=== PATIENT | male | born 1945 | race Caucasian/White ===

== ENCOUNTER 2016-11-10 16:41 | Emergency (ER) | payer OTHER, BC ==
--- NOTE | 2016-11-10 16:40 | EDM.PDOC ---
ED HPI LOWER BACK PAIN/INJURY - General Chief Complaint: Back Pain or Injury Stated Complaint: FELL, IN BY JONNY AMB Time Seen by Provider: 11/10/16 16:30 Source of Information: Reports: Patient History Limitations: Reports: No limitations - History of Present Illness INITIAL COMMENTS - FREE TEXT/NARRATIVE: This 71 yo male patient was brought to the ED by [facility] due to left lower back pain and muscle spasms. 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 The patient has been experiencing muscle spasms in the left lower back since the time of injury. The patient reports he has not been able to walk due to the muscle spasms. The patient had to call the ambulance due to the fact that he could not ambulate with muscle spasm. Symptom Onset Date: 11/10/16 Timing/Duration: Reports: Constant Location: Reports: lower, paraspinal Quality: Reports: Ache, Sharp Severity: moderate Place of Occurrence: work Improves with: Reports: Rest Worsens with: Reports: Movement Context: Reports: fall Associated Symptoms: Reports: Denies symptoms - Related Data Allergies/ADRs: Allergies Allergy/AdvReac Type Severity Reaction Status Date / Time No Known Allergies Allergy Verified 11/10/16 17:07 Home Meds: Home Meds Aspirin [Halfprin] 81 mg PO DAILY 11/10/16 [History] Atenolol [Tenormin] 100 mg PO DAILY 11/10/16 [History] Hydrochlorothiazide 25 mg PO DAILY 11/10/16 [History] Simvastatin [Simvastatin] 20 mg PO BEDTIME 11/10/16 [History] ED ROS GENERAL - Review of Systems Review Of Systems: ROS reveals no pertinent complaints other than HPI. ED EXAM,LOWER BACK PAIN/INJURY - Physical Exam Exam: See Below Exam Limited By: No limitations General Appearance: alert, WD/WN, moderate distress Eye Exam: bilateral eye: EOMI, normal inspection, PERRL Ears: normal external exam, normal canal, hearing grossly normal, normal TMs Nose: normal inspection, normal mucosa, no blood Throat/Mouth: Normal inspection, Normal lips, Normal teeth, Normal gums, Normal oropharynx, Normal voice, No airway compromise Head: atraumatic, normocephalic Neck: normal inspection, supple, non-tender, full range of motion Respiratory/Chest: no respiratory distress, lungs clear, normal breath sounds, no accessory muscle use, chest non-tender Cardiovascular: normal peripheral pulses, regular rate, rhythm, no edema, no gallop, no JVD, no murmur, no rub GI/Abdominal: normal bowel sounds, soft, non tender, no organomegaly, no distention, no abnormal bruit, no mass (Male) Exam: Deferred Rectal (Males) Exam: Deferred Back Exam: muscle spasm (left lower back), paraspinal tenderness Extremities: normal inspection, normal range of motion, non-tender, no pedal edema, normal capillary refill Neurological: alert, normal mood/affect, normal reflexes, oriented x 3 Psychiatric: normal affect, normal mood Skin Exam: Warm, Dry, Intact, Normal color, No rash Lymphatic: no adenopathy Course - Vital Signs Last Recorded V/S: Last Vital Signs Temp 36.9 C 11/10/16 16:44 Pulse 67 11/10/16 16:44 Resp BP 134/73 11/10/16 16:44 Pulse Ox - Orders/Labs/Meds Orders: Active Orders 24 hr Category Date Time Status Orphenadrine [Norflex] Med 11/10/16 16:45 Active 60 mg IM Q12H Medication Orders Orphenadrine Citrate (Norflex) 60 mg IM Q12H JAIME Last Admin: 11/10/16 16:57 Dose: 60 mg Meds: Medications Generic Name Dose Route Start Last Admin Trade Name Freq PRN Reason Stop Dose Admin Orphenadrine Citrate 60 mg 11/10/16 16:45 11/10/16 16:57 Norflex IM 60 mg Q12H JAIME Administration Discontinued Medications Generic Name Dose Route Start Last Admin Trade Name Freq PRN Reason Stop Dose Admin Ketorolac Tromethamine 60 mg 11/10/16 16:34 11/10/16 16:54 Toradol IM 11/10/16 16:35 60 mg ONETIME ONE Administration Departure - Departure Time of Disposition: 18:33 Disposition: Home, Self-Care 01 Condition: fair Clinical Impression: Low back strain Qualifiers: Encounter type: initial encounter Qualified Code(s): S39.012A - Strain of muscle, fascia and tendon of lower back, initial encounter Instructions: Muscle Strain, [id number], Back Pain, Adult, [id number] Forms: ED Department Discharge Care Plan Goals: The patient was advised of the examination results during the visit. The patient was given an injection of Toradol and Norflex while in the ED. The patient was discharged with scripts for 1) Toradol (10 mg) #20 to take 1 by mouth every 6 hours, 2) Flexeril (10 mg) #20 to take 1 by mouth at bedtime and 3 ) Ismay (5/325) #6 to take 1 by mouth every 6 hours as needed for pain. If the patient has any additional symptoms or concerns, the patient should follow-up with his primary care facility or return to the emergency department. - My Orders Last 24 Hours: My Active Orders 11/10/16 16:45 Orphenadrine [Norflex] 60 mg IM Q12H - Assessment/Plan Last 24 Hours: My Active Orders 11/10/16 16:45 Orphenadrine [Norflex] 60 mg IM Q12H
[~2016-11-10 16:41] MED LIST: Ketorolac 30 MG/ML SDV IM ONE
[2016-11-10 16:45] VITALS: BP 134/73
== END 2016-11-10 18:50 | disposition home or self-care (01) ==
LOC: DL.ED 16:41
DX: S39.012A Strain of muscle, fascia and tendon of lower back, initial encounter (principal); Z79.82 Long term (current) use of aspirin; W19.XXXA Unspecified fall, initial encounter; Y93.89 Activity, other specified; Y92.89 Other specified places as the place of occurrence of the external cause
CPT/HCPCS: 96372; 99283; J1885; J2360

== ENCOUNTER 2019-07-13 19:39 | Observation (INO) | payer MEDICARE, OTHER ==
[2019-07-13 20:14] LABS: ANION GAP 21.2
[2019-07-13] MEDS ORDERED: Sodium Chloride 0.9% 1,000 ML IV ONE (20:17)
[2019-07-13] MEDS ORDERED: Potassium Chloride 10 MEQ Tab.ER PO ONE (20:18)
--- NOTE | 2019-07-13 20:25 | EDM.PDOC ---
ED HPI GENERAL MEDICAL PROBLEM - General Chief Complaint: Chest Pain Stated Complaint: AMBULANCE Time Seen by Provider: 07/13/19 20:21 Source of Information: Reports: Patient History Limitations: Reports: No Limitations - History of Present Illness INITIAL COMMENTS - FREE TEXT/NARRATIVE: states been having diarrhoea all day and left upper chest been having "twinges" of on-off sharp pain, gone now. c/o mouth being dry. states not eaten anything all day but able to take liquids denies N/V. came in due to his BP high and heart racing. 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 Left Upper Chest Pain Score (Numeric/FACES): 3 - Related Data Allergies Allergy/AdvReac Type Severity Reaction Status Date / Time No Known Allergies Allergy Verified 11/10/16 17:07 Home Meds: Home Meds Aspirin [Halfprin] 81 mg PO DAILY 11/10/16 [History] Hydrochlorothiazide 25 mg PO DAILY 11/10/16 [History] Simvastatin 20 mg PO BEDTIME 11/10/16 [History] atenoloL [Tenormin] 100 mg PO DAILY 11/10/16 [History] Past Medical History HEENT History: Reports: Hard of Hearing, Impaired Vision Cardiovascular History: Reports: High Cholesterol, Hypertension - Past Surgical History Musculoskeletal Surgical History: Reports: Other (See Below) Social & Family History - Family History Family Medical History: Noncontributory - Tobacco Use Smoking Status *Q: Unknown Ever Smoked Second Hand Smoke Exposure: No - Caffeine Use Caffeine Use: Reports: Coffee - Recreational Drug Use Recreational Drug Use: No ED ROS GENERAL - Review of Systems Review Of Systems: Comprehensive ROS is negative, except as noted in HPI. ED EXAM, GENERAL - Physical Exam Exam: See Below Exam Limited By: No Limitations General Appearance: Alert, WD/WN, No Apparent Distress, Other (pleasant ) Ears: Hearing Grossly Normal Throat/Mouth: Normal Voice, No Airway Compromise Head: Atraumatic Neck: Non-Tender, Full Range of Motion Respiratory/Chest: No Respiratory Distress Cardiovascular: Regular Rate, Rhythm GI/Abdominal: Soft, Non-Tender Neurological: Alert, Oriented, Normal Cognition, Normal Gait, No Motor/Sensory Deficits Psychiatric: Normal Affect, Normal Mood Skin Exam: Warm, Dry, Normal Color Lymphatic: No Adenopathy Course - Vital Signs Last Recorded V/S: Last Vital Signs Temp 37.6 C 07/13/19 19:47 Pulse 127 H 12/26/19 19:47 Resp 18 07/13/19 19:47 BP 154/81 H 07/13/19 19:47 Pulse Ox 91 L 07/13/19 19:47 - Orders/Labs/Meds Orders: Active Orders 24 hr Category Date Time Status Admission Diagnosis [ADT] Stat ADT 07/13/19 22:13 Ordered Admission Status [Patient Status] [ADT] Routine ADT 07/13/19 22:13 Ordered EKG Documentation Completion [RC] STAT Care 07/13/19 19:47 Active Labs: Laboratory Tests 07/13/19 07/13/19 07/13/19 Range/Units 19:45 19:45 19:45 WBC 11.4 H (5.0-10.0) 10^3/uL RBC 5.58 (4.6-6.2) 10^6/uL Hgb 17.7 (14.0-18.0) g/dL Hct 51.2 (40.0-54.0) % MCV 91.8 (80-100) fL MCH 31.7 (27.0-34.0) pg MCHC 34.6 (33.0-35.0) g/dL Plt Count 226 (150-450) 10^3/uL Neut % (Auto) 81.6 H (42.2-75.2) % Lymph % (Auto) 13.3 L (20.5-50.1) % [place] % (Auto) 4.9 (2-8) % Eos % (Auto) 0.1 L (1.0-3.0) % Baso % (Auto) 0.1 (0.0-1.0) % D-Dimer, Quantitative 539 H (0-400) ng/mL Sodium 140 (135-145) mmol/L Potassium 3.2 L (3.6-5.0) mmol/L Chloride 102 (101-111) mmol/L Carbon Dioxide 20.0 L (21.0-31.0) mmol/L Anion Gap 21.2 BUN 21 H (7-18) mg/dL Creatinine 1.4 H (0.6-1.3) mg/dL Est Cr Clr Drug Dosing 46.14 mL/min Estimated GFR (MDRD) 50 BUN/Creatinine Ratio 15.00 Glucose 225 H (74-105) mg/dL Calcium 8.6 (8.4-10.2) mg/dl Total Bilirubin 1.0 (0.2-1.0) mg/dL AST 38 (10-42) IU/L ALT 38 (10-60) IU/L Alkaline Phosphatase 51 (42-121) IU/L Troponin I 0.03 H* (0.00-0.02) ng/ml B-Natriuretic Peptide 15 (0-100) pg/ml Total Protein 7.5 (6.7-8.2) g/dl Albumin 4.4 (3.2-5.5) g/dl Globulin 3.1 Albumin/Globulin Ratio 1.42 Ethyl Alcohol mg/dL 07/13/19 Range/Units 19:45 WBC (5.0-10.0) 10^3/uL RBC (4.6-6.2) 10^6/uL Hgb (14.0-18.0) g/dL Hct (40.0-54.0) % MCV (80-100) fL MCH (27.0-34.0) pg MCHC (33.0-35.0) g/dL Plt Count (150-450) 10^3/uL Neut % (Auto) (42.2-75.2) % Lymph % (Auto) (20.5-50.1) % [place] % (Auto) (2-8) % Eos % (Auto) (1.0-3.0) % Baso % (Auto) (0.0-1.0) % D-Dimer, Quantitative (0-400) ng/mL Sodium (135-145) mmol/L Potassium (3.6-5.0) mmol/L Chloride (101-111) mmol/L Carbon Dioxide (21.0-31.0) mmol/L Anion Gap BUN (7-18) mg/dL Creatinine (0.6-1.3) mg/dL Est Cr Clr Drug Dosing mL/min Estimated GFR (MDRD) BUN/Creatinine Ratio Glucose (74-105) mg/dL Calcium (8.4-10.2) mg/dl Total Bilirubin (0.2-1.0) mg/dL AST (10-42) IU/L ALT (10-60) IU/L Alkaline Phosphatase (42-121) IU/L Troponin I (0.00-0.02) ng/ml B-Natriuretic Peptide (0-100) pg/ml Total Protein (6.7-8.2) g/dl Albumin (3.2-5.5) g/dl Globulin Albumin/Globulin Ratio Ethyl Alcohol < 5 mg/dL Meds: Medications Discontinued Medications Generic Name Dose Route Start Last Admin Trade Name Aaronq PRN Reason Stop Dose Admin Sodium Chloride 1,000 mls @ 999 mls/hr 07/13/19 20:17 07/13/19 20:30 Normal Saline IV 07/13/19 21:17 999 mls/hr .BOLUS ONE Administration Iopamidol 100 ml 07/13/19 20:31 07/13/19 20:39 Isovue-370 (76%) IVPUSH 07/13/19 20:32 100 ml ONETIME ONE Administration Potassium Chloride 40 meq 07/13/19 20:18 07/13/19 20:30 Klor-Con 10 PO 07/13/19 20:19 40 meq ONETIME ONE Administration Departure - Departure Time of Disposition: 22:15 Disposition: Refer to Observation Condition: Good Clinical Impression: Hypokalemia, Elevated troponin, Elevated d-dimer, Dehydration syndrome Chest pain Qualifiers: Chest pain type: unspecified Qualified Code(s): R07.9 - Chest pain, unspecified Diarrhea Qualifiers: Diarrhea type: unspecified type Qualified Code(s): R19.7 - Diarrhea, unspecified Forms: ED Department Discharge Sepsis Event Note - Evaluation Sepsis Screening Result: No Definite Risk - Focused Exam Vital Signs: Vital Signs Temp Pulse Resp BP Pulse Ox 07/13/19 19:47 37.6 C 127 H 18 154/81 H 91 L Date Exam was Performed: 07/13/19 Time Exam was Performed: 22:15 - My Orders Last 24 Hours: My Active Orders 07/13/19 19:47 EKG Documentation Completion [RC] STAT 07/13/19 22:13 Admission Diagnosis [ADT] Stat Admission Status [Patient Status] [ADT] Routine - Assessment/Plan Last 24 Hours: My Active Orders 07/13/19 19:47 EKG Documentation Completion [RC] STAT 07/13/19 22:13 Admission Diagnosis [ADT] Stat Admission Status [Patient Status] [ADT] Routine
[2019-07-13] MEDS ORDERED: Iopamidol 755 Mg/ML 100 ML Bottle IVPUSH ONE (20:31)
--- NOTE | 2019-07-13 22:51 | PCM.HP ---
H&P History of Present Illness - General Date of Service: 07/13/19 Admit Problem/Dx: Admission Diagnosis/Problem Admission Diagnosis/Problem Elevated troponin level and Hypokalemia Source of Information: Patient, EMS Notes Reviewed, Old Records History Limitations: Reports: No Limitations - History of Present Illness Initial Comments - Free Text/Narative: This is a 73 y/o M with no Past medical history of Hypertension, Dyslipidemia, Edema of extremities, CKD stage III came to ED with feeling of racing heart and and diarrhea X 4 , watery and left upper chest been having on-off p pain, gone now while I saw him c/o mouth being dry and had not had any food today, no one at home had similar problem, all eat the same meal, His son has flu like symptom , he denied, fever, chill, dysuria He had CT chest with contrast and showed no PE but likely Gastroenteritis. EKG Sinus tachycardia, His Trop was at 0.03 ( Ref 0.02) , admitted for observation and monitoring Troponin. Onset of Symptoms: Reports: Today, Gradual Quality: Reports: Dull Left Upper Chest Pain Score (Numeric/FACES): 3 - Related Data Allergies/Adverse Reactions: Allergies Allergy/AdvReac Type Severity Reaction Status Date / Time No Known Allergies Allergy Verified 11/10/16 17:07 Home Medications: Home Meds Aspirin [Halfprin] 81 mg PO DAILY 11/10/16 [History] Hydrochlorothiazide 12.5 mg PO DAILY 11/10/16 [History] Simvastatin 20 mg PO BEDTIME 11/10/16 [History] atenoloL [Tenormin] 100 mg PO DAILY 11/10/16 [History] Tamsulosin [Flomax] 0.4 mg PO BEDTIME 07/13/19 [History] Past Medical History HEENT History: Reports: Hard of Hearing, Impaired Vision Cardiovascular History: Reports: High Cholesterol, Hypertension - Past Surgical History Musculoskeletal Surgical History: Reports: Other (See Below) Social & Family History - Family History Family Medical History: Noncontributory - Tobacco Use Smoking Status *Q: Unknown Ever Smoked Second Hand Smoke Exposure: No - Caffeine Use Caffeine Use: Reports: Coffee - Recreational Drug Use Recreational Drug Use: No H&P Review of Systems - Review of Systems: Review Of Systems: See Below General: Reports: Decreased Appetite. Denies: Fever, Chills, Weakness, Fatigue HEENT: Denies: Dysphasia, Hearing Changes, Sinus Congestion, Vertigo, Visual Changes Pulmonary: Denies: Shortness of Breath, Wheezing, Pleuritic Chest Pain, Cough, Sputum Cardiovascular: Reports: Other (Sinus tachycardia). Denies: Chest Pain, Lightheadedness Gastrointestinal: Reports: Diarrhea. Denies: Abdominal Pain, Bloody Stool, Difficulty Swallowing, Nausea, Vomiting Genitourinary: Denies: Dysuria, Burning, Flank Pain Musculoskeletal: Denies: Neck Pain, Shoulder Pain, Leg Pain, Muscle Stiffness Skin: Denies: Cyanosis, Dryness, Bruising, Rash Psychiatric: Denies: Confusion, Anxiety, Agitation Neurological: Denies: Confusion, Numbness, Paresthesia, Tremors Hematologic/Lymphatic: Reports: No Symptoms Immunologic: Reports: No Symptoms Exam - Exam Exam: See Below - Vital Signs Vital Signs: Last Vital Signs Temp 37.2 C 07/13/19 22:30 Pulse 120 H 07/13/19 22:30 Resp 18 07/13/19 22:30 BP 128/77 07/13/19 22:30 Pulse Ox 93 L 07/13/19 22:30 Weight: 91.535 kg - Exam Quality Assessment: DVT Prophylaxis. No: Supplemental Oxygen, Urinary Catheter General: Alert, Oriented, Cooperative HEENT: Conjunctiva Clear, EOMI, Mucosa Moist & [place], Pupils Equal Neck: No: Lymphadenopathy, Carotid Bruit, JVD, Thyromegaly Lungs: Clear to Auscultation, Normal Respiratory Effort. No: Crackles, Wheezing Cardiovascular: Regular Rate, Regular Rhythm, Systolic Murmur GI/Abdominal Exam: Normal Bowel Sounds, Soft, Non-Tender. No: Guarding, Rebound (Male) Exam: Deferred Rectal (Males) Exam: Deferred Back Exam: Normal Inspection, Full Range of Motion Extremities: Normal Inspection, No Pedal Edema Skin: Warm, Dry, Intact Neurological: Cranial Nerves Intact, Reflexes Equal Bilateral Neuro Extensive - Mental Status: Alert, Oriented x3, Normal Mood/Affect, Normal Cognition, Memory Intact Neuro Extensive - Motor, Sensory, Reflexes: CN II-XII Intact, Normal Gait, Normal Reflexes Psychiatric: Alert, Normal Affect, Normal Mood - Patient Data Lab Results Last 24 hrs: Laboratory Results - last 24 hr 07/13/19 07/13/19 07/13/19 Range/Units 19:45 19:45 19:45 WBC 11.4 H (5.0-10.0) 10^3/uL RBC 5.58 (4.6-6.2) 10^6/uL Hgb 17.7 (14.0-18.0) g/dL Hct 51.2 (40.0-54.0) % MCV 91.8 (80-100) fL MCH 31.7 (27.0-34.0) pg MCHC 34.6 (33.0-35.0) g/dL Plt Count 226 (150-450) 10^3/uL Neut % (Auto) 81.6 H (42.2-75.2) % Lymph % (Auto) 13.3 L (20.5-50.1) % [place] % (Auto) 4.9 (2-8) % Eos % (Auto) 0.1 L (1.0-3.0) % Baso % (Auto) 0.1 (0.0-1.0) % D-Dimer, Quantitative 539 H (0-400) ng/mL Sodium 140 (135-145) mmol/L Potassium 3.2 L (3.6-5.0) mmol/L Chloride 102 (101-111) mmol/L Carbon Dioxide 20.0 L (21.0-31.0) mmol/L Anion Gap 21.2 BUN 21 H (7-18) mg/dL Creatinine 1.4 H (0.6-1.3) mg/dL Est Cr Clr Drug Dosing 46.14 mL/min Estimated GFR (MDRD) 50 BUN/Creatinine Ratio 15.00 Glucose 225 H (74-105) mg/dL Calcium 8.6 (8.4-10.2) mg/dl Total Bilirubin 1.0 (0.2-1.0) mg/dL AST 38 (10-42) IU/L ALT 38 (10-60) IU/L Alkaline Phosphatase 51 (42-121) IU/L Troponin I 0.03 H* (0.00-0.02) ng/ml B-Natriuretic Peptide 15 (0-100) pg/ml Total Protein 7.5 (6.7-8.2) g/dl Albumin 4.4 (3.2-5.5) g/dl Globulin 3.1 Albumin/Globulin Ratio 1.42 Ethyl Alcohol mg/dL 07/13/19 Range/Units 19:45 WBC (5.0-10.0) 10^3/uL RBC (4.6-6.2) 10^6/uL Hgb (14.0-18.0) g/dL Hct (40.0-54.0) % MCV (80-100) fL MCH (27.0-34.0) pg MCHC (33.0-35.0) g/dL Plt Count (150-450) 10^3/uL Neut % (Auto) (42.2-75.2) % Lymph % (Auto) (20.5-50.1) % [place] % (Auto) (2-8) % Eos % (Auto) (1.0-3.0) % Baso % (Auto) (0.0-1.0) % D-Dimer, Quantitative (0-400) ng/mL Sodium (135-145) mmol/L Potassium (3.6-5.0) mmol/L Chloride (101-111) mmol/L Carbon Dioxide (21.0-31.0) mmol/L Anion Gap BUN (7-18) mg/dL Creatinine (0.6-1.3) mg/dL Est Cr Clr Drug Dosing mL/min Estimated GFR (MDRD) BUN/Creatinine Ratio Glucose (74-105) mg/dL Calcium (8.4-10.2) mg/dl Total Bilirubin (0.2-1.0) mg/dL AST (10-42) IU/L ALT (10-60) IU/L Alkaline Phosphatase (42-121) IU/L Troponin I (0.00-0.02) ng/ml B-Natriuretic Peptide (0-100) pg/ml Total Protein (6.7-8.2) g/dl Albumin (3.2-5.5) g/dl Globulin Albumin/Globulin Ratio Ethyl Alcohol < 5 mg/dL Result Diagrams: 07/13/19 19:45 07/13/19 19:45 - Problem List (1) Sinus tachycardia SNOMED Code(s): 27630350 ICD Code: R00.0 - TACHYCARDIA, UNSPECIFIED Status: Acute Current Visit: Yes (2) Diarrhea SNOMED Code(s): 09332623 ICD Code: R19.7 - DIARRHEA, UNSPECIFIED Status: Acute Current Visit: No Qualifiers: Diarrhea type: unspecified type (3) Elevated troponin SNOMED Code(s): 615387969, 129731998, 460013775 ICD Code: R79.89 - OTHER SPECIFIED ABNORMAL FINDINGS OF BLOOD CHEMISTRY Status: Acute Current Visit: No (4) Hypokalemia SNOMED Code(s): 79304663 ICD Code: E87.6 - HYPOKALEMIA Status: Acute Current Visit: No Problem List Initiated/Reviewed/Updated: Yes Orders Last 24hrs: Active Orders 24 hr Category Date Time Status Admission Diagnosis [ADT] Stat ADT 07/13/19 22:13 Ordered Admission Status [Patient Status] [ADT] Routine ADT 07/13/19 22:13 Active Assessment/Plan Comment:: This is a 73 y/O male admitted with elevated Troponin and Sinus tachycardia Impression and Plan: 1. Elevated Troponin: His troponin is slightly elevated , probably from Demand ischemia from Intravascular volume depletion/Dehydration secondary to Diarrhea -Will continue NS at 100 ml/hr -Will check Trop X 3 more sates q 4 hrs 2. Hypertension: BP is acceptable but he is tachycardic and it could be secondary to Dehydration -Will continue IVF -Will start cardizem at 60 mg PO q8hrs with a dose now -Will hold propranolol 3. Hypokalemia: This Likely secondary to Diarrhea -Will replace with potassium chloride 4. Dyslipidemia: Continue Simvastatin 5. Edema of extremities: Will hold HCTZ ( was at 25 mg daily) DVT prophylaxis: start Levonex Code Status: Discussed with pt code status and he is FULL CODE
[2019-07-13] MEDS ORDERED: Acetaminophen 325 MG Tab PO PRN (23:03)
[2019-07-13] MEDS ORDERED: Docusate Sodium 100 MG Cap PO PRN (23:03)
[2019-07-13] MEDS ORDERED: Diltiazem IR 30 MG Tab PO SCH (23:25)
[2019-07-13] MEDS ORDERED: Sodium Chloride 0.9% 1,000 ML IV SCH (23:30)
[2019-07-13] MEDS ORDERED: Tamsulosin 0.4 MG Cap.ER PO ONE (23:58)
[2019-07-13] MEDS ORDERED: Simvastatin 10 MG Tab PO ONE (23:59)
[2019-07-14] MEDS ORDERED: SIMVASTATIN 20 MG PO SCH (00:15)
[2019-07-14] MEDS ORDERED: Tamsulosin 0.4 MG Cap.ER**OWN MED PO SCH (00:15)
[2019-07-14] MEDS: Sodium Chloride 0.9% 10 ML Syringe FLUSH PRN ×2 (00:22→01:55)
[2019-07-14] MEDS ORDERED: Heparin Sodium/0.45% NaCl 25,000 UNITS/500 ML BAG IV SCH (01:45)
[2019-07-14] MEDS ORDERED: Heparin Sodium 5,000 Units/ML Vial IV ONE (01:45)
--- NOTE | 2019-07-14 02:02 | PCM.DCSUM1 ---
Discharge Summary - Hospital Course Free Text/Narrative:: This is a 73 y/o M with no Past medical history of Hypertension, Dyslipidemia, Edema of extremities, CKD stage III came to ED with feeling of racing heart and and diarrhea X 4 , watery and left upper chest been having on-off p pain, gone now while I saw him c/o mouth being dry and had not had any food today, no one at home had similar problem, all eat the same meal, His son has flu like symptom , he denied, fever, chill, dysuria He had CT chest with contrast on 07/13/19 and showed no PE but likely Gastroenteritis. EKG Sinus tachycardia, His Trop was at 0.03 ( Ref 0.02) , admitted for observation and monitoring Troponin. His troponin in 4 hrs increased from 0.03 to 0.2 and will start him on Heparin and transfer to [facility] for Cardiology Evaluation. Dr. Rojas have acceptable the transfer of the pt. - Discharge Data Discharge Date: 07/14/19 Discharge Disposition: DC/Tfer to Acute Hospital 02 Condition: Stable - Referral to Home Health Primary Care Physician: PCP Unobtainable - Discharge Diagnosis/Problem(s) (1) Sinus tachycardia SNOMED Code(s): 31807626 ICD Code: R00.0 - TACHYCARDIA, UNSPECIFIED Status: Acute Current Visit: Yes (2) Diarrhea SNOMED Code(s): 81060829 ICD Code: R19.7 - DIARRHEA, UNSPECIFIED Status: Acute Current Visit: No Qualifiers: Diarrhea type: unspecified type Qualified Code(s): R19.7 - Diarrhea, unspecified (3) Elevated troponin SNOMED Code(s): 033089935, 670153557, 902200166 ICD Code: R79.89 - OTHER SPECIFIED ABNORMAL FINDINGS OF BLOOD CHEMISTRY Status: Acute Current Visit: No (4) Hypokalemia SNOMED Code(s): 83567995 ICD Code: E87.6 - HYPOKALEMIA Status: Acute Current Visit: No - Patient Instructions Diet: Heart Healthy Diet Activity: As Tolerated Notify Provider of: Fever, Increased Pain, Nausea and/or Vomiting - Discharge Plan Home Medications: Home Meds Aspirin [Halfprin] 81 mg PO DAILY 11/10/16 [History] Hydrochlorothiazide 12.5 mg PO DAILY 11/10/16 [History] Simvastatin 20 mg PO BEDTIME 11/10/16 [History] atenoloL [Tenormin] 100 mg PO DAILY 11/10/16 [History] Tamsulosin [Flomax] 0.4 mg PO BEDTIME 07/13/19 [History] Forms: ED Department Discharge Referrals: PCP,Unobtain [Primary Care Provider] - - Discharge Summary/Plan Comment DC Time >30 min.: Yes Discharge Summary/Plan Comment: This is a 73 y/O male admitted with elevated Troponin and Sinus tachycardia Impression and Plan: 1. Elevated Troponin: His troponin is slightly elevated , probably from Demand ischemia from Intravascular volume depletion/Dehydration secondary to Diarrhea -Will continue NS at 100 ml/hr -Will check Trop X 2 more sates q 4 hrs -Recheck Trop increased from 0.03 to 2 -Will start Heparin drip and transfer pt to [facility] for further care and evaluation by Cardiology 2. Hypertension: BP is acceptable but he is tachycardic and it could be secondary to Dehydration -Will continue IVF -Will continue cardizem at 60 mg PO q8hrs with a dose now -Will hold propranolol 3. Hypokalemia: This Likely secondary to Diarrhea -He has receive potassium chloride 40 meq PO x 1 dose 4. Dyslipidemia: Continue Simvastatin 5. Edema of extremities: Will hold HCTZ ( was at 25 mg daily) DVT prophylaxis: start Levonex Code Status: Discussed with pt code status and he is FULL CODE - General Info Date of Service: 07/14/19 Admission Dx/Problem (Free Text: Admission Diagnosis/Problem Admission Diagnosis/Problem Elevated troponin level and Hypokalemia Subjective Update: pt was seen in room doing well, No chest pain, nausea or vomiting, no more Diarrhea after admission Functional Status: Reports: Pain Controlled, Tolerating Diet, Ambulating, Urinating - Review of Systems General: Reports: Appetite (acceptable). Denies: Fever, Chills HEENT: Denies: Headaches, Sinus Congestion, Sore Throat, Visual Changes Pulmonary: Denies: Shortness of Breath, Cough, Sputum, Wheezing Cardiovascular: Reports: Chest Pain. Denies: Edema, Lightheadedness Gastrointestinal: Reports: Diarrhea. Denies: Abdominal Pain, Nausea, Vomiting Genitourinary: Denies: Dysuria, Burning, Urgency, Flank Pain Musculoskeletal: Denies: Neck Pain, Shoulder Pain, Joint Swelling Skin: Denies: Cyanosis, Jaundice, Diaphoresis Neurological: Denies: Confusion, Numbness, Tremors Psychiatric: Denies: Confusion, Anxiety - Patient Data Vitals - Most Recent: Last Vital Signs Temp 37.2 C 07/13/19 22:30 Pulse 120 H 07/13/19 22:30 Resp 18 07/13/19 22:30 BP 128/77 07/13/19 22:30 Pulse Ox 93 L 07/13/19 23:06 Weight - Most Recent: 91.535 kg Lab Results - Last 24 hrs: Laboratory Results - last 24 hr 07/13/19 07/13/19 07/13/19 Range/Units 19:45 19:45 19:45 WBC 11.4 H (5.0-10.0) 10^3/uL RBC 5.58 (4.6-6.2) 10^6/uL Hgb 17.7 (14.0-18.0) g/dL Hct 51.2 (40.0-54.0) % MCV 91.8 (80-100) fL MCH 31.7 (27.0-34.0) pg MCHC 34.6 (33.0-35.0) g/dL Plt Count 226 (150-450) 10^3/uL Neut % (Auto) 81.6 H (42.2-75.2) % Lymph % (Auto) 13.3 L (20.5-50.1) % [place] % (Auto) 4.9 (2-8) % Eos % (Auto) 0.1 L (1.0-3.0) % Baso % (Auto) 0.1 (0.0-1.0) % D-Dimer, Quantitative 539 H (0-400) ng/mL Sodium 140 (135-145) mmol/L Potassium 3.2 L (3.6-5.0) mmol/L Chloride 102 (101-111) mmol/L Carbon Dioxide 20.0 L (21.0-31.0) mmol/L Anion Gap 21.2 BUN 21 H (7-18) mg/dL Creatinine 1.4 H (0.6-1.3) mg/dL Est Cr Clr Drug Dosing 46.14 mL/min Estimated GFR (MDRD) 50 BUN/Creatinine Ratio 15.00 Glucose 225 H (74-105) mg/dL Calcium 8.6 (8.4-10.2) mg/dl Total Bilirubin 1.0 (0.2-1.0) mg/dL AST 38 (10-42) IU/L ALT 38 (10-60) IU/L Alkaline Phosphatase 51 (42-121) IU/L Troponin I 0.03 H* (0.00-0.02) ng/ml B-Natriuretic Peptide 15 (0-100) pg/ml Total Protein 7.5 (6.7-8.2) g/dl Albumin 4.4 (3.2-5.5) g/dl Globulin 3.1 Albumin/Globulin Ratio 1.42 Ethyl Alcohol mg/dL 07/13/19 07/14/19 Range/Units 19:45 00:10 WBC (5.0-10.0) 10^3/uL RBC (4.6-6.2) 10^6/uL Hgb (14.0-18.0) g/dL Hct (40.0-54.0) % MCV (80-100) fL MCH (27.0-34.0) pg MCHC (33.0-35.0) g/dL Plt Count (150-450) 10^3/uL Neut % (Auto) (42.2-75.2) % Lymph % (Auto) (20.5-50.1) % [place] % (Auto) (2-8) % Eos % (Auto) (1.0-3.0) % Baso % (Auto) (0.0-1.0) % D-Dimer, Quantitative (0-400) ng/mL Sodium (135-145) mmol/L Potassium (3.6-5.0) mmol/L Chloride (101-111) mmol/L Carbon Dioxide (21.0-31.0) mmol/L Anion Gap BUN (7-18) mg/dL Creatinine (0.6-1.3) mg/dL Est Cr Clr Drug Dosing mL/min Estimated GFR (MDRD) BUN/Creatinine Ratio Glucose (74-105) mg/dL Calcium (8.4-10.2) mg/dl Total Bilirubin (0.2-1.0) mg/dL AST (10-42) IU/L ALT (10-60) IU/L Alkaline Phosphatase (42-121) IU/L Troponin I 0.20 H* (0.00-0.02) ng/ml B-Natriuretic Peptide (0-100) pg/ml Total Protein (6.7-8.2) g/dl Albumin (3.2-5.5) g/dl Globulin Albumin/Globulin Ratio Ethyl Alcohol < 5 mg/dL Med Orders - Current: Current Medications Acetaminophen (Tylenol) 650 mg PO Q4H PRN PRN Reason: Pain (mild 1-3 )/fever Aspirin (Halfprin) 81 mg PO DAILY JAIME Diltiazem HCl (Cardizem) 60 mg PO Q8HR JAIME Last Admin: 07/14/19 00:19 Dose: 60 mg Docusate Sodium (Colace) 100 mg PO DAILY PRN PRN Reason: Constipation Enoxaparin Sodium (Lovenox) 40 mg SUBCUT DAILY JAIME Sodium Chloride (Normal Saline) 1,000 mls @ 100 mls/hr IV ASDIRECTED JAIME Last Admin: 07/14/19 00:21 Dose: 100 mls/hr Heparin Sodium/Sodium Chloride (Heparin 25,000 Units In 1/2 Ns 500 Ml) 25,000 units in 500 mls @ 20 mls/hr IV TITRATE JAIME; Protocol Simvastatin 20mg Tab (Own Med) 1 each PO BEDTIME JAIME Last Admin: 07/14/19 00:19 Dose: 1 each Sodium Chloride (Saline Flush) 10 ml FLUSH ASDIRECTED PRN PRN Reason: Keep Vein Open Last Admin: 07/14/19 00:22 Dose: 10 ml Tamsulosin HCl (Flomax) 0.4 mg PO BEDTIME JAIME Last Admin: 07/14/19 00:20 Dose: 0.4 mg Discontinued Medications Heparin Sodium (Porcine) (Heparin Sodium) 4,000 units IV ONETIME ONE Stop: 07/14/19 01:46 Sodium Chloride (Normal Saline) 1,000 mls @ 999 mls/hr IV .BOLUS ONE Stop: 07/13/19 21:17 Last Admin: 07/13/19 20:30 Dose: 999 mls/hr Iopamidol (Isovue-370 (76%)) 100 ml IVPUSH ONETIME ONE Stop: 07/13/19 20:32 Last Admin: 07/13/19 20:39 Dose: 100 ml Potassium Chloride (Klor-Con 10) 40 meq PO ONETIME ONE Stop: 07/13/19 20:19 Last Admin: 07/13/19 20:30 Dose: 40 meq Simvastatin (Zocor) 20 mg PO BEDTIME JAIME Simvastatin (Zocor) 20 mg PO ONETIME ONE Stop: 07/14/19 00:00 Tamsulosin HCl (Flomax) 0.4 mg PO BEDTIME JAIME Tamsulosin HCl (Flomax) 0.4 mg PO ONETIME ONE Stop: 07/13/19 23:59 - Exam Quality Assessment: Reports: DVT Prophylaxis. Denies: Supplemental Oxygen, Urine Catheter General: Reports: Alert, Oriented, Cooperative, No Acute Distress HEENT: Reports: Pupils Equal, Pupils Reactive, EOMI, Mucous Membr. Moist/[place] Neck: Reports: No JVD, No Thyromegaly Lungs: Reports: Clear to Auscultation, Normal Respiratory Effort. Denies: Wheezing Cardiovascular: Reports: Regular Rate, Regular Rhythm, Tachycardia, Murmurs GI/Abdominal Exam: Normal Bowel Sounds, Soft, No Organomegaly. No: Rigid, Rebound, Tender (Male) Exam: Deferred Rectal (Males) Exam: Deferred Back Exam: Reports: Normal Inspection, Full Range of Motion Extremities: Normal Inspection, No Pedal Edema Skin: Reports: Warm, Dry, Intact Neurological: Reports: No New Focal Deficit Psy/Mental Status: Reports: Alert, Normal Affect, Normal Mood
[2019-07-14 02:48] VITALS: BP 131/66; PULSE 109
[2019-07-14] MEDS ORDERED: Aspirin 81 MG Tab.EC PO SCH (09:00)
[2019-07-14] MEDS ORDERED: Enoxaparin 40 MG/0.4 ML Syringe SUBCUT SCH (09:00)
[2019-07-14] MEDS ORDERED: Simvastatin 10 MG Tab PO SCH (21:00)
[2019-07-14] MEDS ORDERED: Tamsulosin 0.4 MG Cap.ER PO SCH (21:00)
== END 2019-07-14 02:30 ==
LOC: DL.ED 19:39 → DL.MS 22:13 → UNDOADMOB 22:28
PROVIDERS: ADMIT Internal Medicine Nephrology; ATTEND Internal Medicine Nephrology
DX: R00.0 Tachycardia, unspecified (principal); R19.7 Diarrhea, unspecified; R79.89 Other specified abnormal findings of blood chemistry; E87.6 Hypokalemia; I12.9 Hypertensive chronic kidney disease with stage 1 through stage 4 chronic kidney disease, or unspecified chronic kidney disease; N18.3 Chronic kidney disease, stage 3 (moderate); E78.5 Hyperlipidemia, unspecified; E78.00 Pure hypercholesterolemia, unspecified; R60.9 Edema, unspecified; Z79.82 Long term (current) use of aspirin; Z79.899 Other long term (current) drug therapy
CPT/HCPCS: 36415; 71260; 74177; 80053; 83880; 84484; 85025; 85379; 93005; A9270-GY; G0480; J1644; J7030; Q9967

== ENCOUNTER 2019-07-28 23:17 | Emergency (ER) | payer MEDICARE, OTHER ==
[2019-07-28 23:49] VITALS: BP 128/75; PULSE 86
--- NOTE | 2019-07-29 00:05 | EDM.PDOC ---
ED HPI GENERAL MEDICAL PROBLEM - General Chief Complaint: Wound Recheck Stated Complaint: SORE ON LEG Time Seen by Provider: 07/29/19 00:02 Source of Information: Reports: Patient History Limitations: Reports: No Limitations - History of Present Illness INITIAL COMMENTS - FREE TEXT/NARRATIVE: s/p vein removal for CABG 3 weeks been fine till today noticed swelling and tenderness over site and tonight calf and thigh feels discomfort but no pain and can walk ok. denies CP/SOB - Related Data Allergies Allergy/AdvReac Type Severity Reaction Status Date / Time No Known Allergies Allergy Verified 11/10/16 17:07 Home Meds: Home Meds Aspirin [Halfprin] 81 mg PO DAILY 11/10/16 [History] Hydrochlorothiazide 12.5 mg PO DAILY 11/10/16 [History] Simvastatin 20 mg PO BEDTIME 11/10/16 [History] atenoloL [Tenormin] 100 mg PO DAILY 11/10/16 [History] Tamsulosin [Flomax] 0.4 mg PO BEDTIME 07/13/19 [History] Past Medical History HEENT History: Reports: Impaired Vision Other HEENT History: bilat hearing aids, wears glasses Cardiovascular History: Reports: High Cholesterol, Hypertension, [place] Gastrointestinal History: Reports: Hemorrhoids - Infectious Disease History Infectious Disease History: Reports: Chicken Pox, Measles, Mumps - Past Surgical History Cardiovascular Surgical History: Reports: Coronary Artery Bypass GI Surgical History: Reports: Cholecystectomy Social & Family History - Family History Family Medical History: Noncontributory Cardiac: Reports: [place] Other Cardiac Family History: father from - Tobacco Use Smoking Status *Q: Never Smoker Second Hand Smoke Exposure: No - Caffeine Use Caffeine Use: Reports: Coffee, Soda - Recreational Drug Use Recreational Drug Use: No ED ROS GENERAL - Review of Systems Review Of Systems: Comprehensive ROS is negative, except as noted in HPI. ED EXAM, SKIN/RASH Exam: See Below Exam Limited By: No Limitations General Appearance: Alert, WD/WN, Mild Distress, Other (discomfort) Ears: Hearing Grossly Normal Throat/Mouth: Normal Voice, No Airway Compromise Head: Atraumatic Neck: Non-Tender, Full Range of Motion Respiratory/Chest: No Respiratory Distress Cardiovascular: Regular Rate, Rhythm GI/Abdominal: Soft, Non-Tender Extremities: Other (right leg mild swelling and erythema over site, rest normal , gait normal) Neurological: Alert, Oriented, Normal Cognition, Normal Gait, No Motor/Sensory Deficits Psychiatric: Normal Affect, Normal Mood Skin: Warm, Dry, Normal Color Location, Skin: Lower Extremity, Right Lymphatic: No Adenopathy Course - Vital Signs Last Recorded V/S: Last Vital Signs Temp 36.6 C 07/28/19 23:44 Pulse 86 07/28/19 23:44 Resp 18 07/28/19 23:44 BP 128/75 07/28/19 23:44 Pulse Ox 97 07/28/19 23:44 - Orders/Labs/Meds Orders: Active Orders 24 hr Category Date Time Status Venous Doppler Lwr Ext Rt [US] Urgent Exams 07/29/19 00:00 Ordered Labs: Laboratory Tests 07/29/19 07/29/19 07/29/19 Range/Units 00:10 00:10 00:10 WBC 8.8 (5.0-10.0) 10^3/uL RBC 3.30 L (4.6-6.2) 10^6/uL Hgb 10.6 L D (14.0-18.0) g/dL Hct 33.1 L (40.0-54.0) % MCV 100.3 H D (80-100) fL MCH 32.1 (27.0-34.0) pg MCHC 32.0 L (33.0-35.0) g/dL Plt Count 614 H D (150-450) 10^3/uL Neut % (Auto) 66.8 (42.2-75.2) % Lymph % (Auto) 23.2 (20.5-50.1) % [place] % (Auto) 6.9 (2-8) % Eos % (Auto) 2.8 (1.0-3.0) % Baso % (Auto) 0.3 (0.0-1.0) % Sodium 136 (135-145) mmol/L Potassium 3.9 (3.6-5.0) mmol/L Chloride 103 (101-111) mmol/L Carbon Dioxide 23.0 (21.0-31.0) mmol/L Anion Gap 13.9 BUN 20 H (7-18) mg/dL Creatinine 1.2 (0.6-1.3) mg/dL Est Cr Clr Drug Dosing 53.83 mL/min Estimated GFR (MDRD) 60 BUN/Creatinine Ratio 16.66 Glucose 128 H (74-105) mg/dL Lactic Acid 1.5 (0.5-2.0) mmol/L Calcium 8.4 (8.4-10.2) mg/dl Total Bilirubin 0.6 (0.2-1.0) mg/dL AST 24 (10-42) IU/L ALT 33 (10-60) IU/L Alkaline Phosphatase 103 (42-121) IU/L Total Protein 7.1 (6.7-8.2) g/dl Albumin 3.6 (3.2-5.5) g/dl Globulin 3.5 Albumin/Globulin Ratio 1.03 - Re-Assessments/Exams Free Text/Narrative Re-Assessment/Exam: 07/29/19 01:09 results discussed with pt who noticed lump on right leg has gone down. still denies pain. Departure - Departure Time of Disposition: 01:10 Disposition: Home, Self-Care 01 Condition: Good Clinical Impression: Seroma after procedure - Discharge Information Instructions: Seroma Forms: ED Department Discharge Additional Instructions: 1) elevate right leg as much as possible 2) follow up with surgeon Wednesday per appointment 3) recheck if there is any change or concern Sepsis Event Note - Evaluation Sepsis Screening Result: No Definite Risk - Focused Exam Vital Signs: Vital Signs Temp Pulse Resp BP Pulse Ox 07/28/19 23:44 36.6 C 86 18 128/75 97 Date Exam was Performed: 07/29/19 Time Exam was Performed: 01:09 - My Orders Last 24 Hours: My Active Orders 07/29/19 00:00 Venous Doppler Lwr Ext Rt [US] Urgent - Assessment/Plan Last 24 Hours: My Active Orders 07/29/19 00:00 Venous Doppler Lwr Ext Rt [US] Urgent
[2019-07-29 00:49] LABS: ANION GAP 13.9
== END 2019-07-29 01:15 | disposition home or self-care (01) ==
LOC: DL.ED 23:17
DX: I97.641 Postprocedural seroma of a circulatory system organ or structure following cardiac bypass (principal); I10 Essential (primary) hypertension; I25.2 Old myocardial infarction; Z79.899 Other long term (current) drug therapy; Z79.82 Long term (current) use of aspirin
CPT/HCPCS: 36415; 80053; 83605; 85025; 93971; 99284-25

== ENCOUNTER 2019-08-07 18:51 | Emergency (ER) | payer MEDICARE, OTHER ==
[2019-08-07 18:58] VITALS: BP 113/88; PULSE 83
[2019-08-07] MEDS ORDERED: Lidocaine 2% Viscous Solution 15 ML Cup PO ONE ×2 (19:23→23:34)
[2019-08-07] MEDS ORDERED: Magnesium Citrate Solution 296 ML Bottle PO ONE (19:23)
--- NOTE | 2019-08-07 19:24 | EDM.PDOC ---
ED HPI GENERAL MEDICAL PROBLEM - General Chief Complaint: Gastrointestinal Problem Stated Complaint: BLOATING, URINE Time Seen by Provider: 08/07/19 19:20 Source of Information: Reports: Patient, RN, RN Notes Reviewed History Limitations: Reports: No Limitations - History of Present Illness INITIAL COMMENTS - FREE TEXT/NARRATIVE: patient presents to ER from [facility] with complaint of abdominal pain, constipation , urinary retention. Patient was seen in the clinic today, had a KUB there. Results of the KUB show moderate amount of stool, no obstruction. Patient states he had open heart surgery 3 weeks ago and has been using opioids for pain since then. Patient states last bowel movement was 3-4 days ago, and has been unable to urinate today. Patient complains of pain from hemorrhoids as well. Patient denies chest pain, shortness of breath, nausea or vomiting. Onset: Gradual - Related Data Allergies Allergy/AdvReac Type Severity Reaction Status Date / Time cefazolin [From Anc] Allergy Cannot Verified 08/07/19 19:06 Remember erythromycin base Allergy Cannot Verified 08/07/19 19:06 Remember Home Meds: Home Meds Acetaminophen [Tylenol] 650 mg PO Q4HR PRN 08/07/19 [History] Amiodarone [Cordarone] 400 mg PO DAILY 08/07/19 [History] Aspirin [Halfprin] 81 mg PO DAILY 08/07/19 [History] Magnesium Citrate [Citrate of Magnesia] 296 ml PO DAILY PRN 08/07/19 [History] Metoprolol Tartrate 25 mg PO DAILY 08/07/19 [History] Sildenafil [Viagra] 100 mg PO BEDTIME PRN 08/07/19 [History] Tamsulosin [Tamsulosin 24 Hr] 0.4 mg PO DAILY 08/07/19 [History] atorvaSTATin Calcium [Atorvastatin Calcium] 80 mg PO DAILY 08/07/19 [History] hydroCHLOROthiazide [Hydrochlorothiazide] 25 mg PO DAILY 08/07/19 [History] oxyCODONE 5 mg PO Q4HR PRN 08/07/19 [History] Past Medical History HEENT History: Reports: Impaired Vision Other HEENT History: bilat hearing aids, wears glasses Cardiovascular History: Reports: High Cholesterol, Hypertension, [place] Respiratory History: Reports: None Gastrointestinal History: Reports: Hemorrhoids Genitourinary History: Reports: None Musculoskeletal History: Reports: None Neurological History: Reports: None Psychiatric History: Reports: None Hematologic History: Reports: None Immunologic History: Reports: None Oncologic (Cancer) History: Reports: None Dermatologic History: Reports: None - Infectious Disease History Infectious Disease History: Reports: Chicken Pox, Measles, Mumps - Past Surgical History Cardiovascular Surgical History: Reports: Coronary Artery Bypass Other Cardiovascular Surgeries/Procedures: triple bipass 2018 GI Surgical History: Reports: Cholecystectomy Musculoskeletal Surgical History: Reports: Other (See Below) Social & Family History - Family History Family Medical History: Noncontributory Cardiac: Reports: [place] Other Cardiac Family History: father from - Tobacco Use Smoking Status *Q: Never Smoker - Caffeine Use Caffeine Use: Reports: Coffee, Soda - Recreational Drug Use Recreational Drug Use: No ED ROS GENERAL - Review of Systems Review Of Systems: Comprehensive ROS is negative, except as noted in HPI. ED EXAM, GI/ABD - Physical Exam Exam: See Below Exam Limited By: No Limitations General Appearance: Alert, WD/WN, No Apparent Distress Eyes: Bilateral: Normal Appearance, EOMI Ears: Normal External Exam, Hearing Grossly Normal Nose: Normal Inspection Throat/Mouth: Normal Inspection, Normal Voice, No Airway Compromise Head: Atraumatic, Normocephalic Neck: Normal Inspection, Supple, Non-Tender, Full Range of Motion Respiratory/Chest: No Respiratory Distress, Lungs Clear, Normal Breath Sounds, No Accessory Muscle Use, Chest Non-Tender, Other (incisions intact on the chest) Cardiovascular: Normal Peripheral Pulses, Regular Rate, Rhythm, No Edema, No Gallop, No JVD, No Murmur, No Rub GI/Abdominal Exam: Normal Bowel Sounds, Soft, No Organomegaly, No Distention, No Abnormal Bruit, No Mass, Pelvis Stable, Tender (Male) Exam: Deferred Rectal (Males) Exam: Hemorrhoids, Tenderness Back Exam: Normal Inspection, Full Range of Motion, NT Extremities: Normal Inspection, Normal Range of Motion, Non-Tender, Normal Capillary Refill, No Pedal Edema Neurological: Alert, Oriented, CN II-XII Intact, Normal Cognition, Normal Gait, Normal Reflexes, No Motor/Sensory Deficits Psychiatric: Normal Affect, Normal Mood Skin Exam: Warm, Dry, Intact, Normal Color, No Rash Lymphatic: No Adenopathy Course - Vital Signs Last Recorded V/S: Last Vital Signs Temp 97.6 F 08/07/19 18:54 Pulse 83 08/07/19 18:54 Resp 16 08/07/19 18:54 BP 113/88 08/07/19 18:54 Pulse Ox 97 08/07/19 18:54 - Orders/Labs/Meds Orders: Active Orders 24 hr Category Date Time Status Bladder Scan [RC] ASDIRECTED Care 08/07/19 19:09 Active Insert Urinary Catheter [OM.PC] Q24H Care 08/07/19 19:30 Ordered Urinary Catheter Assessment [RC] ASDIRECTED Care 08/07/19 19:23 Active Labs: Laboratory Tests 08/07/19 Range/Units 20:50 Urine Color Yellow (YELLOW) Urine Appearance Clear (CLEAR) Urine pH 5.5 (5.0-9.0) Ur Specific [place] >= 1.030 (1.005-1.030) Urine Protein Negative (NEGATIVE) Urine Glucose (UA) Negative (NEGATIVE) Urine Ketones Negative (NEGATIVE) Urine Occult Blood Negative (NEGATIVE) Urine Nitrite Negative (NEGATIVE) Urine Bilirubin Negative (NEGATIVE) Urine Urobilinogen 0.2 (0.2-1.0) mg/dL Ur Leukocyte Esterase Negative (NEGATIVE) Meds: Medications Discontinued Medications Generic Name Dose Route Start Last Admin Trade Name Freq PRN Reason Stop Dose Admin Glycerin 1 supp 08/07/19 21:48 08/07/19 22:00 Sani-Supp Adult RECTAL 08/07/19 21:49 1 supp ONETIME ONE Administration Lidocaine HCl 15 ml 08/07/19 19:23 08/07/19 19:58 Xylocaine 2% Viscous PO 08/07/19 19:24 15 ml ONETIME ONE Administration Lidocaine HCl 15 ml 08/07/19 23:34 08/07/19 23:51 Xylocaine 2% Viscous PO 08/07/19 23:35 15 ml ONETIME ONE Administration Magnesium Citrate 296 ml 08/07/19 19:23 08/07/19 19:58 Citrate Of Magnesia PO 08/07/19 19:24 296 ml ONETIME ONE Administration Methylnaltrexone [place] 8 mg 08/07/19 23:33 08/07/19 23:53 Relistor SUBCUT 08/07/19 23:34 8 mg ONETIME ONE Administration Departure - Departure Time of Disposition: 23:35 Disposition: Home, Self-Care 01 Condition: Fair Clinical Impression: Constipation, Urinary retention - Discharge Information *PRESCRIPTION DRUG MONITORING PROGRAM REVIEWED*: No *COPY OF PRESCRIPTION DRUG MONITORING REPORT IN PATIENT BRANDON: No Instructions: Constipation, Adult, [id number], Abdominal Pain, Adult, Easy-to -Read, Acute Urinary Retention, Male, [id number] Referrals: Dat Ayala MD [Primary Care Provider] - Forms: ED Department Discharge Additional Instructions: follow-up with your primary care provider Drink plenty of fluids Return to the ER with any further problems Sepsis Event Note - Evaluation Sepsis Screening Result: No Definite Risk - Focused Exam Vital Signs: Vital Signs Temp Pulse Resp BP Pulse Ox 08/07/19 18:54 97.6 F 83 16 113/88 97 Date Exam was Performed: 08/08/19 Time Exam was Performed: 01:52 - My Orders Last 24 Hours: My Active Orders 08/07/19 19:09 Bladder Scan [RC] ASDIRECTED 08/07/19 19:23 Urinary Catheter Assessment [RC] ASDIRECTED 08/07/19 19:30 Insert Urinary Catheter [OM.PC] Q24H - Assessment/Plan Last 24 Hours: My Active Orders 08/07/19 19:09 Bladder Scan [RC] ASDIRECTED 08/07/19 19:23 Urinary Catheter Assessment [RC] ASDIRECTED 08/07/19 19:30 Insert Urinary Catheter [OM.PC] Q24H
[2019-08-07] MEDS ORDERED: Glycerin Adult 2.1 GM Supp RECTAL ONE (21:48)
[2019-08-07] MEDS ORDERED: Methylnaltrexone 12 MG/0.6 ML SDV SUBCUT ONE (23:33)
== END 2019-08-07 23:58 | disposition home or self-care (01) ==
LOC: DL.ED 18:51
DX: K59.00 Constipation, unspecified (principal); R33.9 Retention of urine, unspecified; I10 Essential (primary) hypertension; E78.00 Pure hypercholesterolemia, unspecified; I25.2 Old myocardial infarction; Z95.1 Presence of aortocoronary bypass graft; Z88.1 Allergy status to other antibiotic agents; Z88.8 Allergy status to other drugs, medicaments and biological substances; Z79.899 Other long term (current) drug therapy; Z79.82 Long term (current) use of aspirin
CPT/HCPCS: 51701; 51798; 81003; 96372; 99283; 99284; A9270; J2212

== ENCOUNTER 2019-08-13 12:51 | Emergency (ER) | payer MEDICARE, OTHER ==
[2019-08-13 14:03] VITALS: BP 125/68; PULSE 81
--- NOTE | 2019-08-13 15:36 | EDM.PDOC ---
ED HPI GENERAL MEDICAL PROBLEM - General Chief Complaint: Genitourinary Problem Stated Complaint: POSSIBLE UTI Time Seen by Provider: 08/13/19 14:59 Source of Information: Reports: Patient, RN History Limitations: Reports: No Limitations - History of Present Illness INITIAL COMMENTS - FREE TEXT/NARRATIVE: 73 year old male who presents with complaints of frequency, urgency, and dysuria x 4 days. Denies any fever/chills, N/V or hematuria. Denies any abdominal pain or flank pain. has been trying to push fluids. Onset: Gradual - Related Data Allergies Allergy/AdvReac Type Severity Reaction Status Date / Time cefazolin [From Anc] Allergy Cannot Verified 08/13/19 14:05 Remember erythromycin base Allergy Cannot Verified 08/13/19 14:05 Remember Home Meds: Home Meds Acetaminophen [Tylenol] 650 mg PO Q4HR PRN 08/07/19 [History] Amiodarone [Cordarone] 400 mg PO DAILY 08/07/19 [History] Aspirin [Halfprin] 81 mg PO DAILY 08/07/19 [History] Magnesium Citrate [Citrate of Magnesia] 296 ml PO DAILY PRN 08/07/19 [History] Metoprolol Tartrate 25 mg PO DAILY 08/07/19 [History] Sildenafil [Viagra] 100 mg PO BEDTIME PRN 08/07/19 [History] Tamsulosin [Tamsulosin 24 Hr] 0.4 mg PO DAILY 08/07/19 [History] atorvaSTATin Calcium [Atorvastatin Calcium] 80 mg PO DAILY 08/07/19 [History] hydroCHLOROthiazide [Hydrochlorothiazide] 25 mg PO DAILY 08/07/19 [History] oxyCODONE 5 mg PO Q4HR PRN 08/07/19 [History] Past Medical History HEENT History: Reports: Impaired Vision Other HEENT History: bilat hearing aids, wears glasses Cardiovascular History: Reports: High Cholesterol, Hypertension, [place] Respiratory History: Reports: None Gastrointestinal History: Reports: Hemorrhoids Genitourinary History: Reports: None Musculoskeletal History: Reports: None Neurological History: Reports: None Psychiatric History: Reports: None Hematologic History: Reports: None Immunologic History: Reports: None Oncologic (Cancer) History: Reports: None Dermatologic History: Reports: None - Infectious Disease History Infectious Disease History: Reports: Chicken Pox, Measles, Mumps - Past Surgical History Cardiovascular Surgical History: Reports: Coronary Artery Bypass Other Cardiovascular Surgeries/Procedures: triple bipass 2018 GI Surgical History: Reports: Cholecystectomy Musculoskeletal Surgical History: Reports: Other (See Below) Social & Family History - Family History Family Medical History: Noncontributory Cardiac: Reports: [place] Other Cardiac Family History: father from - Tobacco Use Smoking Status *Q: Never Smoker - Caffeine Use Caffeine Use: Reports: Coffee, Soda - Recreational Drug Use Recreational Drug Use: No ED ROS GENERAL - Review of Systems Review Of Systems: Comprehensive ROS is negative, except as noted in HPI. ED EXAM, GI/ABD - Physical Exam Exam: See Below Exam Limited By: No Limitations General Appearance: Alert, No Apparent Distress Respiratory/Chest: No Respiratory Distress, Lungs Clear, Normal Breath Sounds, No Accessory Muscle Use, Chest Non-Tender Cardiovascular: Normal Peripheral Pulses, Regular Rate, Rhythm, No Edema, No Gallop, No JVD, No Murmur, No Rub GI/Abdominal Exam: Normal Bowel Sounds, Soft, Non-Tender, No Organomegaly, No Distention, No Abnormal Bruit, No Mass, Pelvis Stable (Male) Exam: Suprapubic Fullness (none) Neurological: Alert, Oriented Psychiatric: Normal Affect, Normal Mood Skin Exam: Warm, Intact Lymphatic: No Adenopathy Course - Vital Signs Last Recorded V/S: Last Vital Signs Temp 97.9 F 08/13/19 14:01 Pulse 81 08/13/19 14:01 Resp 18 08/13/19 14:01 BP 125/68 08/13/19 14:01 Pulse Ox 96 08/13/19 14:01 - Orders/Labs/Meds Orders: Active Orders 24 hr Category Date Time Status CULTURE URINE [RM] Stat Lab 08/13/19 14:01 Received Labs: Laboratory Tests 08/13/19 Range/Units 14:01 Urine Color Yellow (YELLOW) Urine Appearance Turbid (CLEAR) Urine pH 5.5 (5.0-9.0) Ur Specific [place] 1.025 (1.005-1.030) Urine Protein 100 H (NEGATIVE) Urine Glucose (UA) Negative (NEGATIVE) Urine Ketones Negative (NEGATIVE) Urine Occult Blood Large H (NEGATIVE) Urine Nitrite Positive H (NEGATIVE) Urine Bilirubin Negative (NEGATIVE) Urine Urobilinogen 0.2 (0.2-1.0) mg/dL Ur Leukocyte Esterase Moderate H (NEGATIVE) Urine RBC 10-20 H /HPF Urine WBC Packed H (0-5/HPF) /HPF Ur Epithelial Cells Rare (NOT SEEN) /HPF Amorphous Sediment Few (NOT SEEN) /HPF Urine Bacteria Many H (0-FEW/HPF) /HPF Urine Mucus Not seen (NOT SEEN) /LPF - Re-Assessments/Exams Free Text/Narrative Re-Assessment/Exam: review labs with patient. RX for Bactrim send home with patient. Follow up with PCP as discussed. Departure - Departure Time of Disposition: 15:27 Disposition: Home, Self-Care 01 Condition: Good Clinical Impression: UTI, Urinary tract infectious disease - Discharge Information Instructions: Urinary Tract Infection, Adult, [id number] Forms: ED Department Discharge Additional Instructions: Push fluids and take antibiotics as prescribed. follow up with PCP after treatment. Sepsis Event Note - Evaluation Sepsis Screening Result: No Definite Risk - Focused Exam Vital Signs: Vital Signs Temp Pulse Resp BP Pulse Ox 08/13/19 14:01 97.9 F 81 18 125/68 96 Date Exam was Performed: 08/13/19 Time Exam was Performed: 15:37 - My Orders Last 24 Hours: My Active Orders 08/13/19 14:01 CULTURE URINE [RM] Stat - Assessment/Plan Last 24 Hours: My Active Orders 08/13/19 14:01 CULTURE URINE [RM] Stat
== END 2019-08-13 15:36 | disposition home or self-care (01) ==
LOC: DL.ED 12:51
DX: N39.0 Urinary tract infection, site not specified (principal); I10 Essential (primary) hypertension; I25.2 Old myocardial infarction; Z95.1 Presence of aortocoronary bypass graft; Z90.49 Acquired absence of other specified parts of digestive tract; Z79.82 Long term (current) use of aspirin; Z88.1 Allergy status to other antibiotic agents
CPT/HCPCS: 81001; 87086; 87088; 87186; 99283

== ENCOUNTER 2020-02-24 21:47 | Emergency (ER) | payer MEDICARE, OTHER ==
[2020-02-24 22:36] VITALS: BP 146/83; PULSE 64
--- NOTE | 2020-02-25 01:09 | EDM.PDOC ---
ED HPI GENERAL MEDICAL PROBLEM - General Chief Complaint: Genitourinary Problem Stated Complaint: NO URINATE, NO BOWL MOVEMENT Time Seen by Provider: 02/24/20 22:40 Source of Information: Reports: Patient History Limitations: Reports: No Limitations - History of Present Illness INITIAL COMMENTS - FREE TEXT/NARRATIVE: Unable to void since am and no BM since Wednesday. Previous episode unable to void, had UTI then. no fever chills. No abdominal pain. Took one colace this am. Bladder Pain Score (Numeric/FACES): 8 - Related Data Allergies Allergy/AdvReac Type Severity Reaction Status Date / Time cefazolin [From Ancef] Allergy Cannot Verified 02/24/20 22:36 Remember erythromycin base Allergy Cannot Verified 02/24/20 22:36 Remember Home Meds: Home Meds Acetaminophen [Tylenol] 650 mg PO Q4HR PRN 08/07/19 [History] Aspirin [Halfprin] 81 mg PO DAILY 08/07/19 [History] Metoprolol Tartrate 25 mg PO BID 08/07/19 [History] Tamsulosin [Tamsulosin 24 Hr] 0.4 mg PO DAILY 08/07/19 [History] atorvaSTATin Calcium [Atorvastatin Calcium] 80 mg PO DAILY 08/07/19 [History] hydroCHLOROthiazide [Hydrochlorothiazide] 12.5 mg PO DAILY 08/07/19 [History] Past Medical History HEENT History: Reports: Hard of Hearing, Impaired Vision Other HEENT History: bilat hearing aids, wears glasses Cardiovascular History: Reports: Bypass, High Cholesterol, Hypertension, [place] Respiratory History: Reports: None Gastrointestinal History: Reports: Hemorrhoids Genitourinary History: Reports: None, UTI, Recurrent Musculoskeletal History: Reports: None Neurological History: Reports: None Psychiatric History: Reports: None Hematologic History: Reports: None Immunologic History: Reports: None Oncologic (Cancer) History: Reports: None Dermatologic History: Reports: None - Infectious Disease History Infectious Disease History: Reports: Chicken Pox, Measles, Mumps - Past Surgical History Cardiovascular Surgical History: Reports: Coronary Artery Bypass Other Cardiovascular Surgeries/Procedures: triple bipass 2018 GI Surgical History: Reports: Cholecystectomy Musculoskeletal Surgical History: Reports: Other (See Below) Social & Family History - Family History Family Medical History: Noncontributory Cardiac: Reports: [place] Other Cardiac Family History: father from - Tobacco Use Smoking Status *Q: Never Smoker Second Hand Smoke Exposure: No - Caffeine Use Caffeine Use: Reports: None - Recreational Drug Use Recreational Drug Use: No ED ROS GENERAL - Review of Systems Review Of Systems: Comprehensive ROS is negative, except as noted in HPI. ED EXAM, GI/ABD - Physical Exam Exam: See Below Exam Limited By: No Limitations General Appearance: Alert, Mild Distress Ears: Normal External Exam Nose: Normal Inspection Throat/Mouth: Normal Inspection Head: Atraumatic, Normocephalic Neck: Normal Inspection Respiratory/Chest: No Respiratory Distress, Lungs Clear, Normal Breath Sounds Cardiovascular: Regular Rate, Rhythm GI/Abdominal Exam: Soft, Non-Tender Extremities: Normal Range of Motion Neurological: Alert, Normal Cognition Psychiatric: Normal Affect Skin Exam: Warm, Dry, Normal Color Course - Vital Signs Last Recorded V/S: Last Vital Signs Temp 98 F 02/24/20 22:28 Pulse 64 02/24/20 22:28 Resp 16 02/24/20 22:28 BP 146/83 H 02/24/20 22:28 Pulse Ox 97 02/24/20 22:28 - Orders/Labs/Meds Orders: Active Orders 24 hr Category Date Time Status Enema [RC] ASDIRECTED Care 02/24/20 23:11 Active Urinary Catheter Assessment [RC] ASDIRECTED Care 02/24/20 22:52 Active Urinary Catheter Insertion [Insert Urinary Catheter] [ Care 02/24/20 23:00 Ordered OM.PC] Q24H Labs: Laboratory Tests 02/24/20 Range/Units 22:50 Urine Color Yellow (YELLOW) Urine Appearance Slightly cloudy (CLEAR) Urine pH 5.5 (5.0-9.0) Ur Specific [place] 1.025 (1.005-1.030) Urine Protein Negative (NEGATIVE) Urine Glucose (UA) Negative (NEGATIVE) Urine Ketones Negative (NEGATIVE) Urine Occult Blood Trace-intact H (NEGATIVE) Urine Nitrite Negative (NEGATIVE) Urine Bilirubin Negative (NEGATIVE) Urine Urobilinogen 0.2 (0.2-1.0) mg/dL Ur Leukocyte Esterase Negative (NEGATIVE) Urine RBC 0-5 /HPF Urine WBC 0-5 (0-5/HPF) /HPF Ur Epithelial Cells Few (NOT SEEN) /HPF Urine Bacteria Few (0-FEW/HPF) /HPF Urine Mucus Few H (NOT SEEN) /LPF - Re-Assessments/Exams Free Text/Narrative Re-Assessment/Exam: Enema per nursing with large results, voiding without difficulty following BM. Departure - Departure Time of Disposition: :06 Disposition: Home, Self-Care 01 Condition: Good Clinical Impression: Urinary retention Constipation Qualifiers: Constipation type: slow transit constipation Qualified Code(s): K59.01 - Slow transit constipation - Discharge Information *PRESCRIPTION DRUG MONITORING PROGRAM REVIEWED*: No *COPY OF PRESCRIPTION DRUG MONITORING REPORT IN PATIENT BRANDON: No Instructions: Constipation, Adult, [id number] Referrals: Dat Ayala MD [Primary Care Provider] - Forms: ED Department Discharge Additional Instructions: increase fruit and fiber in diet colace one tablet 1-2 times daily as needed follow up clinic next week sooner if difficulty passing urine Sepsis Event Note (ED) - Evaluation Sepsis Screening Result: No Definite Risk - Focused Exam Vital Signs: Vital Signs Temp Pulse Resp BP Pulse Ox 02/24/20 22:28 98 F 64 16 146/83 H 97 - My Orders Last 24 Hours: My Active Orders 02/24/20 22:52 Urinary Catheter Assessment [RC] ASDIRECTED 02/24/20 23:00 Urinary Catheter Insertion [Insert Urinary Catheter] [OM.PC] Q24H 02/24/20 23:11 Enema [RC] ASDIRECTED - Assessment/Plan Last 24 Hours: My Active Orders 02/24/20 22:52 Urinary Catheter Assessment [RC] ASDIRECTED 02/24/20 23:00 Urinary Catheter Insertion [Insert Urinary Catheter] [OM.PC] Q24H 02/24/20 23:11 Enema [RC] ASDIRECTED
== END 2020-02-25 01:25 | disposition home or self-care (01) ==
LOC: DL.ED 21:47
DX: R33.9 Retention of urine, unspecified (principal); K59.01 Slow transit constipation; E78.00 Pure hypercholesterolemia, unspecified; I10 Essential (primary) hypertension; I25.2 Old myocardial infarction; Z79.82 Long term (current) use of aspirin; Z88.1 Allergy status to other antibiotic agents; Z79.899 Other long term (current) drug therapy
CPT/HCPCS: 51701; 81001; 99283

== ENCOUNTER 2020-10-14 11:39 | Emergency (ER) | payer MEDICARE, OTHER ==
[2020-10-14] MEDS ORDERED: Acetaminophen/HYDROcodone 325-10 MG Tab PO ONE ×2 (11:40→19:09)
[2020-10-14 13:59] VITALS: BP 138/69; PULSE 62
--- NOTE | 2020-10-14 14:54 | CR ---
EXAMINATION: Ankle Min 3V Lt SEX: Male AGE: 75 years CLINICAL HISTORY: 75-year-old male injured left ankle in a fall. Pain. Comparison films left foot November 2010. Interpretation: Abnormal. 1. Acute fracture with complete avulsion of the medial malleolus from the distal tibia, left ankle medially. 2. Bimalleolar soft tissue swelling and left ankle joint effusion. 3. Tibiotalar mortise joint appears symmetrically intact. 4. No distal fibular or hind foot fracture. 5. Heel spur at the insertion of Achilles tendon posteriorly on the os calcis.
--- NOTE | 2020-10-14 14:59 | CR ---
EXAMINATION: Tibia Fibula Lt SEX: Male AGE: 75 years CLINICAL HISTORY: 75-year-old male fall and left lower extremity pain. INTERPRETATION: Abnormal. 1. Avulsion large medial malleolar fracture fragment from the distal left tibia, medially. 2. Associated acute nondisplaced cortical fracture proximal diaphysis of the adjacent left fibula (overlying STS). 3. Knee and tibiotalar mortise joints symmetrically intact. 4. Pronounced bimalleolar soft tissue swelling and left ankle joint effusion. CONCLUSION: Nondisplaced FRACTURES proximal left fibula and medial malleolus distal left tibia.
--- NOTE | 2020-10-14 15:02 | CR ---
EXAMINATION: Foot Comp Min 3V Lt SEX: Male AGE: 75 years CLINICAL HISTORY: 75-year-old male injured in fall. Pain left lower extremity "medial malleolar/proximal fibular fractures". Interpretation: 1. Pronounced bimalleolar soft tissue swelling, left ankle joint effusion, an acute avulsion fracture medial malleolus left tibia. 2. Heel spur at the insertion Achilles tendon posteriorly on the os calcis. 3. No sign of metatarsal or other left foot fracture/dislocation. 4. No foreign bodies.
--- NOTE | 2020-10-14 16:13 | EDM.PDOC ---
ED HPI GENERAL MEDICAL PROBLEM - General Chief Complaint: Lower Extremity Injury/Pain Stated Complaint: LEFT ANKLE INJURY Time Seen by Provider: 10/14/20 14:00 Source of Information: Reports: Patient, RN, RN Notes Reviewed History Limitations: Reports: No Limitations - History of Present Illness INITIAL COMMENTS - FREE TEXT/NARRATIVE: Patient is a 75-year-old male who presents to ER with complaint of left lower leg pain. Patient states he was at work and fell off of a ladder on the side of a truck. Patient denies hitting his head or getting knocked out. Onset: Today, Sudden Left Lower Leg Pain Score (Numeric/FACES): 8 - Related Data Allergies Allergy/AdvReac Type Severity Reaction Status Date / Time cefazolin [From Anc] Allergy Cannot Verified 10/14/20 13:59 Remember erythromycin base Allergy Cannot Verified 10/14/20 13:59 Remember Home Meds: Home Meds Acetaminophen [Tylenol] 650 mg PO Q4HR PRN 08/07/19 [History] Aspirin [Halfprin] 81 mg PO DAILY 08/07/19 [History] Metoprolol Tartrate 25 mg PO BID 08/07/19 [History] Tamsulosin [Tamsulosin 24 Hr] 0.4 mg PO DAILY 08/07/19 [History] atorvaSTATin Calcium [Atorvastatin Calcium] 80 mg PO DAILY 08/07/19 [History] hydroCHLOROthiazide [Hydrochlorothiazide] 12.5 mg PO DAILY 08/07/19 [History] Past Medical History HEENT History: Reports: Hard of Hearing, Impaired Vision Other HEENT History: bilat hearing aids, wears glasses Cardiovascular History: Reports: Bypass, High Cholesterol, Hypertension, [place] Respiratory History: Reports: None Gastrointestinal History: Reports: Hemorrhoids Genitourinary History: Reports: None, UTI, Recurrent Musculoskeletal History: Reports: None Neurological History: Reports: None Psychiatric History: Reports: None Endocrine/Metabolic History: Reports: None Hematologic History: Reports: None Immunologic History: Reports: None Oncologic (Cancer) History: Reports: None Dermatologic History: Reports: None - Infectious Disease History Infectious Disease History: Reports: Chicken Pox, Measles, Mumps - Past Surgical History Head Surgeries/Procedures: Reports: None Cardiovascular Surgical History: Reports: Coronary Artery Bypass Other Cardiovascular Surgeries/Procedures: triple bipass 2018 GI Surgical History: Reports: Cholecystectomy Musculoskeletal Surgical History: Reports: Other (See Below) Other Musculoskeletal Surgeries/Procedures:: broken arm as kid Social & Family History - Family History Family Medical History: No Pertinent Family History Cardiac: Reports: [place] Other Cardiac Family History: father from - Tobacco Use Tobacco Use Status *Q: Never Tobacco User Second Hand Smoke Exposure: No - Caffeine Use Caffeine Use: Reports: Coffee - Recreational Drug Use Recreational Drug Use: No Review of Systems - Review of Systems Review Of Systems: Comprehensive ROS is negative, except as noted in HPI. ED EXAM, GENERAL - Physical Exam Exam: See Below Exam Limited By: No Limitations General Appearance: Alert, WD/WN, No Apparent Distress Eye Exam: Bilateral Eye: EOMI, Normal Inspection Ears: Normal External Exam, Hearing Grossly Normal Nose: Normal Inspection Throat/Mouth: Normal Inspection, Normal Voice, No Airway Compromise Head: Atraumatic, Normocephalic Neck: Normal Inspection, Supple, Non-Tender, Full Range of Motion Respiratory/Chest: No Respiratory Distress, Lungs Clear, Normal Breath Sounds, No Accessory Muscle Use, Chest Non-Tender Cardiovascular: Normal Peripheral Pulses, Regular Rate, Rhythm, No Edema, No Gallop, No JVD, No Murmur, No Rub Peripheral Pulses: 2+: Radial (L), Radial (R) GI/Abdominal: Normal Bowel Sounds, Soft, Non-Tender (Male) Exam: Deferred Rectal (Males) Exam: Deferred Back Exam: Normal Inspection, Full Range of Motion, NT Extremities: Pedal Edema (left foot), Joint Swelling (left ankle), Leg Pain (left lower leg), Limited Range of Motion (left ankle) Neurological: Alert, Oriented, CN II-XII Intact, Normal Cognition, Normal Gait, Normal Reflexes, No Motor/Sensory Deficits Psychiatric: Normal Affect, Normal Mood Skin Exam: Ecchymosis (left ankle), Erythema (left ankle) ED TRAUMA EXTREMITY PROCEDURES - Splinting Left Lower Extremity Splint Site: left lower leg Pre-Procedure NV Status: Normal Post-Procedure NV Status: Normal Splint Material: Fiberglass Splint Design: Posterior, Other (Anterior short leg) Applied & Form Fitted By: Provider Provider Post-Splint Application NV Check: NV Status Normal, Good Position Complications: No Course - Vital Signs Last Recorded V/S: Last Vital Signs Temp 98.5 F 10/14/20 13:54 Pulse 62 10/14/20 13:54 Resp 16 10/14/20 13:54 BP 138/69 10/14/20 13:54 Pulse Ox 100 10/14/20 13:54 - Orders/Labs/Meds Meds: Medications Discontinued Medications Generic Name Dose Route Start Last Admin Trade Name Fermin PRN Reason Stop Dose Admin Hydrocodone Bitart/Acetaminophen 1 tab 10/14/20 19:09 10/14/20 19:30 Acetaminophen/Hydrocodone 325-10 Mg Tab PO 10/14/20 19:10 1 tab ONETIME ONE Administration Hydrocodone Bitart/Acetaminophen Confirm 10/14/20 19:25 10/14/20 19:31 Acetaminophen/Hydrocodone 325-10 Mg Tab Administered 10/14/20 19:26 Not Given Dose 4 tab .ROUTE .STK-MED ONE Fentanyl 50 mcg 10/14/20 16:55 10/14/20 17:05 Fentanyl 100 Mcg/2 Ml Sdv IM 10/14/20 16:56 50 mcg ONETIME ONE Administration - Radiology Interpretation Free Text/Narrative:: Left tib-fib x-ray: Nondisplaced fractures proximal left fibula and medial malleolus distal left tibia Left foot x-ray: Pronounced bimalleolar soft tissue swelling, left ankle joint effusion, and acute avulsion fracture medial malleolus left tibia Heel spur at the insertion Achilles tendon posteriorly on the os calcis No sign of metatarsal or other left foot fracture/dislocation No foreign bodies Left ankle x-ray: Acute fracture with complete avulsion of the medial malleolus from the distal tibia, left ankle medially Bimalleolar soft tissue swelling and left ankle joint effusion Tibiotalar mortise joint appears symmetrically intact. No distal fibular or hind foot fracture Heel spur at the insertion of Achilles tendon posteriorly on the os calcis See radiologist report - Re-Assessments/Exams Free Text/Narrative Re-Assessment/Exam: 10/14/20 16:05 Discussed patient case with Dr. Moran, orthopedics at [facility] who states that this may need to be surgically repaired. He states he would like to see the patient in the clinic tomorrow morning with surgery possibly on Wednesday. Instructed to put a short leg splint and crutches. Departure - Departure Time of Disposition: 19:41 Disposition: Home, Self-Care 01 Condition: Fair Clinical Impression: Fracture of tibia AND fibula - Discharge Information *PRESCRIPTION DRUG MONITORING PROGRAM REVIEWED*: No *COPY OF PRESCRIPTION DRUG MONITORING REPORT IN PATIENT BRANDON: No Instructions: Crutch Use, Adult, [id number], Tibial and Fibular Fractures Referrals: Dat Ayala MD [Primary Care Provider] - Forms: ED Department Discharge Additional Instructions: May use Tylenol as directed for pain Elevate when possible and as frequently as possible Use crutches at all time, no weightbearing Keep splint clean and dry See Dr. Moran at the orthopedic clinic at [facility] tomorrow morning at 8:10 AM [address] [facility] Pack a bag and possibly stay overnight for the possibility of surgery on Wednesday Sepsis Event Note (ED) - Evaluation Sepsis Screening Result: No Definite Risk
[2020-10-14] MEDS ORDERED: fentaNYL 100 MCG/2 ML SDV IM ONE (16:55)
[2020-10-14] MEDS ORDERED: Acetaminophen/HYDROcodone 325-10 MG Tab ONE (19:25)
== END 2020-10-14 19:41 | disposition home or self-care (01) ==
LOC: DL.ED 11:39
DX: S82.52XA Displaced fracture of medial malleolus of left tibia, initial encounter for closed fracture (principal); S82.832A Other fracture of upper and lower end of left fibula, initial encounter for closed fracture; E78.00 Pure hypercholesterolemia, unspecified; I10 Essential (primary) hypertension; I25.2 Old myocardial infarction; Z79.82 Long term (current) use of aspirin; Z79.899 Other long term (current) drug therapy; Z88.1 Allergy status to other antibiotic agents; W11.XXXA Fall on and from ladder, initial encounter; Y92.89 Other specified places as the place of occurrence of the external cause; Y99.0 Civilian activity done for income or pay
CPT/HCPCS: 29515; 73590; 73610; 73630; 96372; 99283; 99284; A9270; J3010